=== PATIENT | female | born 1975 | race Caucasian/White ===

== ENCOUNTER 2019-03-09 16:03 | Outpatient (REF) | payer BC, SELFPAY ==
[2019-03-09 13:28] LABS: Abs Immature Grans 0.01 k/cumm (0.0-0.09); Absolute Basophil Count 0.02 k/cumm (0.0-0.2); Absolute Eosinophil Count 0.13 k/cumm (0.0-0.7); Absolute Lymphocyte Count 1.95 k/cumm (1.2-3.4); Absolute Monocyte Count 0.27 k/cumm (0.11-0.7); Absolute Neutrophil Count 3.71 k/cumm (1.2-6.7); Basophils % 0.3; Eosinophils % 2.1; HCT 35.8 % (36.0-46.0); HGB 12.4 g/dL (12.0-15.5); Immature Grans % 0.2; Mean Corp. HGB Concentration 34.6 g/dL (32.0-36.0); Mean Corpuscular Hemoglobin 30.4 pg (27.0-33.0); Mean Corpuscular Volume 87.7 fL (80-95); Monocytes % 4.4; Platelet Count 311 x1000/uL (130-400); RBC 4.08 m/cumm (4.00-5.20); White Blood Cell Count 6.09 k/cumm (4.4-10.8)
[2019-03-09 14:02] LABS: ALT 29 U/L (12-78); AST 15 U/L (15-37); Albumin 3.6 g/dL (3.4-5.0); Alkaline Phosphatase 73 U/L (46-116); Anion Gap 11.2 mmol/L (3-11); BUN 8 mg/dL (7-18); Bilirubin, Total 0.4 mg/dL (0.2-1.0); CO2 24.8 mmol/L (21.0-32.0); CREATININE 0.76 mg/dL (0.55-1.02); Calcium 8.7 mg/dL (8.5-10.1); Chloride 103 mmol/L (98-107); Glucose 93 mg/dL (70-100); Potassium 4.2 mmol/L (3.5-5.1); Sodium 139 mmol/L (136-145); Total Protein 7.4 g/dL (6.4-8.2)
[2019-03-09 14:54] LABS: COMMENT (LAB VIEW ONLY) 42.54 mg/dL; Microalb ug/mg Crea 6.6 ug/mg Cr
== END 2019-03-09 16:23 ==
LOC: NCHCN 16:03
PROVIDERS: PCP Family Medicine; Visit Provider Nurse Practitioner Family
DX: E11.9 Type 2 diabetes mellitus without complications (principal); I10 Essential (primary) hypertension; E78.5 Hyperlipidemia, unspecified
CPT/HCPCS: 80053; 82043; 82570; 85025

== ENCOUNTER 2019-03-18 17:15 | Outpatient (REF) | payer BC, SELFPAY ==
--- NOTE | 2019-03-18 16:40 | PAPFT_PTH ---
PATIENT: Jerri North LOC: [facility] U#:[id number] AGE/SX: 44/F ROOM: RE03/18/[address]: Pola Espinoza : 1975 BED: DIS: 03/18/2019 SPEC #: [id number] RECD: 03/18/19 17:51 STATUS: CAS REQ #: [id number] TULIO: 03/18/19 16:[address]: Pola Espinoza DEPT: [facility] Cytology RECD BY: Carmenza Higginbotham ENTERED: 03/18/19 17:52 SP TYPE: PAPFT OTHR DR: Juani Aguayo Tissues: 1 - CX/ENDOCX FOR PAP SMEARS Procedures: PAP THIN PREP/[facility] Screening HPV DNA PROBE Comments: [id number]
== END 2019-03-18 17:35 ==
LOC: NCHCN 17:15
PROVIDERS: PCP Family Medicine; Visit Provider Nurse Practitioner Family
DX: Z12.4 Encounter for screening for malignant neoplasm of cervix (principal); Z11.51 Encounter for screening for human papillomavirus (HPV)
CPT/HCPCS: 88142; 87624

== ENCOUNTER 2020-10-27 17:14 | Outpatient (REF) | payer SELFPAY ==
[2020-10-27 15:17] LABS: HCT 35.3 % (36.0-46.0); MCH 29.8 pg (27.0-33.0); MCV 87.6 fL (80-95); Platelet Count 262 10^3/uL (130-400); RBC 4.03 10^6/uL (3.93-5.22); RDW 13.3 % (11.7-14.6); RDW-SD 42.8 fL; WBC 5.94 10^3/uL (4.4-10.8)
[2020-10-27 15:41] LABS: ALT 28 U/L (14-59); AST 11 U/L (15-37); Albumin 3.8 g/dL (3.4-5.0); Alkaline Phosphatase 90 U/L (46-116); BUN 13 mg/dL (7-18); Bilirubin, Total 0.5 mg/dL (0.2-1.0); CREATININE 0.8 mg/dL (0.55-1.02); Calcium 8.9 mg/dL (8.5-10.1); Calculated LDL 109 mg/dL (<100); Chloride 101 mmol/L (98-107); Cholesterol 199 mg/dL (<200); Glucose 126 mg/dL (74-106); HDL Cholesterol 81 mg/dL (40-60); Potassium 4.6 mmol/L (3.5-5.1); Sodium 137 mmol/L (136-145); Total Protein 7.4 g/dL (6.4-8.2); Triglyceride 48 mg/dL (<150)
[2020-10-27 15:52] LABS: Hemoglobin A1C 6.8 % (<5.7)
[2020-10-30 09:44] LABS: Hepatitis C Ab w Rflx HCV PCR Negative (Negative)
[2020-10-30 09:54] LABS: HIV-1/2 Ag & Ab Screen Negative (Negative)
== END 2020-10-27 17:15 | disposition home or self-care (01) ==
LOC: NCHCN 17:14
PROVIDERS: PCP Family Medicine; Visit Provider Nurse Practitioner Family
DX: E11.9 Type 2 diabetes mellitus without complications (principal); I10 Essential (primary) hypertension; E78.5 Hyperlipidemia, unspecified
CPT/HCPCS: 80053; 80061; 85027; 86803; 87389; 83036

== ENCOUNTER 2023-01-17 15:36 | Outpatient (REF) | payer BC, SELFPAY ==
[2023-01-17 13:57] LABS: Iron 48 ug/dL (50-170); Total Iron Binding Capacity 443 ug/dL (250-450); Transferrin Sat 11 % (15-50)
[2023-01-17 14:24] LABS: Anion Gap 8.7 mmol/L (3-11); BUN 11 mg/dL (7-18); CO2 26.3 mmol/L (21.0-32.0); CREATININE 0.8 mg/dL (0.55-1.02); Calcium 9.1 mg/dL (8.5-10.1); Calculated LDL 112 mg/dL (<100); Chloride 105 mmol/L (98-107); Cholesterol 200 mg/dL (<200); Estimated GFR 90.27 (mL/min/1.73m2); Glucose 111 mg/dL (74-106); HDL Cholesterol 79 mg/dL (40-60); Potassium 4.8 mmol/L (3.5-5.1); Sodium 140 mmol/L (136-145); Triglyceride 46 mg/dL (<150); Vitamin B12 1293 pg/mL (193-986)
== END 2023-01-17 15:37 | disposition home or self-care (01) ==
LOC: NCHCN 15:36
PROVIDERS: PCP Family Medicine; Visit Provider Family Medicine
DX: D50.9 Iron deficiency anemia, unspecified (principal); E11.9 Type 2 diabetes mellitus without complications
CPT/HCPCS: 80048; 80061; 82607; 83540; 83550

== ENCOUNTER 2023-12-08 17:24 | Outpatient (REF) | payer BC, SELFPAY ==
[2023-12-10 12:05] LABS: Lyme Ab w Rflx to Lyme Confirm Negative (Negative)
== END 2023-12-08 17:25 | disposition home or self-care (01) ==
LOC: NCHCN 17:24
PROVIDERS: PCP Family Medicine; Visit Provider Family Medicine
DX: H53.139 Sudden visual loss, unspecified eye (principal)
CPT/HCPCS: 86618

== ENCOUNTER 2024-06-25 15:23 | Outpatient (REF) | payer BC, SELFPAY ==
[2024-06-25 17:02] LABS: ALT 25 U/L (14-59); AST 13 U/L (15-37); Albumin 3.9 g/dL (3.4-5.0); Alkaline Phosphatase 74 U/L (46-116); BUN 14 mg/dL (7-18); Bilirubin, Total 0.37 mg/dL (0.2-1.0); CREATININE 0.9 mg/dL (0.55-1.02); Calcium 9.1 mg/dL (8.5-10.1); Calculated LDL 96 mg/dL (<100); Chloride 102 mmol/L (98-107); Cholesterol 207 mg/dL (<200); Glucose 156 mg/dL (74-106); HDL Cholesterol 96 mg/dL (40-60); Potassium 4.5 mmol/L (3.5-5.1); Sodium 138 mmol/L (136-145); Total Protein 7.4 g/dL (6.4-8.2); Triglyceride 76 mg/dL (<150)
== END 2024-06-25 15:24 | disposition home or self-care (01) ==
LOC: NCHCN 15:23
PROVIDERS: PCP Family Medicine; Visit Provider Family Medicine
DX: E11.9 Type 2 diabetes mellitus without complications (principal)
CPT/HCPCS: 80053; 80061

== ENCOUNTER 2024-10-15 15:06 | Outpatient (REF) | payer BC, SELFPAY ==
--- NOTE | 2024-10-15 11:20 | PAPFT_PTH ---
PATIENT: Jerri North LOC: [facility] U#:[id number] AGE/SX: 49/F ROOM: RE10/15/[address]: Mattie Flores : 1975 BED: DIS: 10/15/2024 SPEC #: [id number] RECD: 10/15/24 18:02 STATUS: CAS REKristina #: [id number] TULIO: 10/15/24 11:[address]: Mattie Flores DEPT: [facility] Cytology RECD BY: Carmenza Higginbotham ENTERED: 10/15/24 18:03 SP TYPE: PAPFT OTHR DR: Juani Aguayo Tissues: 1 - CX/ENDOCX FOR PAP SMEARS Procedures: PAP THIN PREP/[facility] Screening HPV DNA PROBE Comments: [id number] (HPV 16 & 18/45)
== END 2024-10-15 15:07 | disposition home or self-care (01) ==
LOC: LBN 15:06
PROVIDERS: PCP Family Medicine; Visit Provider Family Medicine
DX: Z12.4 Encounter for screening for malignant neoplasm of cervix (principal)
CPT/HCPCS: 88142; 87624